=== PATIENT | male | born 1965 | race Caucasian/White ===

== ENCOUNTER 2016-05-05 16:53 | Emergency (ER) | payer OTHER ==
[2016-05-05 18:27] VITALS: BP 142/96
--- NOTE | 2016-05-05 19:29 | UC ---
Skin Complaint HPI - HPI Summary HPI Summary: 51 male presents complaining of a lesion on his abdomen that began 2 weeks ago and has not improved. He states it is a small circular lesion that is only on his abdomen and recently noticed a similar area on his right foot. He describes the rash to be burning. Denies itchiness, edema, discharge and spreading. Admits to erythema. States his has a similar one on her face and she thinks it may be a spider bite. He has been applying hydrocortisone on the area without much improvement. He states he was searching shingles and discussing with co-workers about it and wanted to make sure it wasn't it. Admits he is a "germaphobe" and has OCD and wanted to make sure it was nothing serious. Denies new use of lotion, soap, cologne, detergent or clothes. States his clothes rubbing on it and shower water makes it burn more. Denies sensitive skin however admits to showering often. 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 - Allergy/Home Medications Allergies/Adverse Reactions: Allergies Allergy/AdvReac Type Severity Reaction Status Date / Time Celecoxib [From Celebrex] Allergy Unknown Verified 05/05/16 18:27 Reaction Details [place] Allergy See Comment Verified 05/05/16 18:27 Codeine Allergy Nausea And Verified 05/05/16 18:27 Vomiting Rofecoxib [From Vioxx] Allergy Nausea And Verified 05/05/16 18:27 Vomiting Shellfish Allergy Allergy Vomiting Verified 05/05/16 18:27 Review of Systems Constitutional: Negative Skin: Rash Eyes: Negative ENT: Negative Respiratory: Negative Cardiovascular: Negative Gastrointestinal: Negative Genitourinary: Negative Motor: Negative Neurovascular: Negative Musculoskeletal: Negative Neurological: Negative Psychological: Negative All Other Systems Reviewed And Are Negative: Yes PMH/Surg Hx/FS Hx/Imm Hx Endocrine History Of: Denies: Diabetes, Thyroid Disease Cardiovascular History Of: Reports: Hypertension Denies: Cardiac Disorders, Pacemaker/ICD Respiratory History Of: Reports: Bronchitis Denies: COPD, Asthma GI/ History Of: Denies: Ulcer, Renal Disease Neurological History Of: Reports: Migraine - OCCASSIONAL Psychological History Of: Reports: Anxiety - OCD - Surgical History Surgical History: Yes Surgery Procedure, Year, and Place: cyst removal from right pectoral muscle - Family History Known Family History: Positive: Diabetes, Other - BREAST CANCER - MOM - Social History Alcohol Use: Occasionally Substance Use Type: None Smoking Status (MU): Never Smoked Tobacco Physical Exam Triage Information Reviewed: Yes Appearance: Well-Appearing, No Pain Distress, Well-Nourished Vital Signs: Initial Vital Signs Temp 97.5 F 05/05/16 18:23 Pulse 70 05/05/16 18:23 Resp 12 05/05/16 18:23 BP 142/96 05/05/16 18:23 Pulse Ox 100 05/05/16 18:23 Vital Signs Reviewed: Yes Eyes: Positive: Conjunctiva Clear ENT: Positive: Normal ENT inspection, Hearing grossly normal, Pharynx normal, TMs normal Dental Exam: Normal Dental: Negative: Cervical Lymphadenopathy Neck: Positive: Supple, Nontender, No Lymphadenopathy Respiratory: Positive: Chest non-tender, Lungs clear, Normal breath sounds, No respiratory distress Cardiovascular: Positive: RRR, No Murmur, Pulses Normal, Brisk Capillary Refill Abdomen Description: Positive: Nontender, No Organomegaly, Soft Bowel Sounds: Positive: Present Musculoskeletal Exam: Normal Neurological Exam: Normal Psychological Exam: Normal Skin: Positive: significant lesion(s) - circular erythematous non-raised 1cm area on abdomen, similar lesion on right lateral foot. appears dry. no weeping or discharge, no excoriations. no sign of rash or lesion on back, rest of abdomen, web spaces or anywhere else on body. Appears to possibly be a spider bite or area of eczema. no annular ring and no crusting. does not appear to be fungal. Course/Dx - Course Course Of Treatment: patient was instructed to stop use of hydrocortisone cream as it has not helped him or made a difference. it could be causing more of an irritation. encouraged to use eucerin and to try neosporin to see if it helps. did not appear fungal. told to follow-up with PCP or return if it does not go away in the next couple of weeks to be further evaluated. educated on shingles and common presentations of shingles. encouraged to get shingles vaccination. - Differential Diagnoses - Skin Complaint Differential Diagnoses: Allergic Reaction, Cellulitis, Contact Dermatitis, Eczema, Varicella Zoster, Viral Exanthem, Other - Diagnoses Provider Diagnoses: skin irritation, possible spider bite, eczema Discharge - Discharge Plan Condition: Stable Disposition: HOME Patient Education Materials: Insect Bite or Sting (ED), Eczema (ED) Referrals: Dylan Renteria MD [Primary Care Provider] - Additional Instructions: Try using Eucerin and Neosporin alternatively over the counter for the next few days on area of irritation. Stop using hydrocortisone since you have not had any improvement and could possibly be causing more irritation. Please follow-up with primary care doctor to be further evaluated if symptoms do not improve or worsen. You may need to make an appointment with dermatology if no improvement. If you develop symptoms of worsening redness, spreading, fever, chills increase pain please seek medical attention promptly.
== END 2016-05-05 19:36 | disposition home or self-care (01) ==
LOC: UCEAST 16:53
DX: R21 Rash and other nonspecific skin eruption (principal); Z88.5 Allergy status to narcotic agent
CPT/HCPCS: 99211; G0463

== ENCOUNTER 2017-01-17 16:47 | Emergency (ER) | payer OTHER ==
[2017-01-17 16:54] VITALS: BP 132/69
--- NOTE | 2017-01-17 17:15 | UC ---
Back Pain HPI - HPI Summary HPI Summary: Patient presents with three day onset non-traumatic flank pain. He states the pain is worse when he lays down and improves when he is up and walking around. He denies fever, chills, dysuria, or hematuria, testicular pain, or penile discharge. - History of Current Complaint Chief Complaint: UCBackPain Stated Complaint: BACK PAIN Time Seen by Provider: 01/17/17 16:59 Hx Obtained From: Patient Onset/Duration: Sudden Onset, Lasting Days Timing: Lasting Days Severity Initially: Moderate Severity Currently: Moderate Back Pain: Is Discrete @ Character: Sharp Aggravating Factor(s): Other - laying down Alleviating Factor(s): Rest Associated Signs And Symptoms: Positive: Flank Pain - Risk Factors AAA Risk Factors: Negative TAD Risk Factors: Negative Cauda Equina Risk Factors: Negative Epidural Abscess Risk Factors: Negative - Allergies/Home Medications Allergies/Adverse Reactions: Allergies Allergy/AdvReac Type Severity Reaction Status Date / Time Celecoxib [From Celebrex] Allergy Unknown Verified 01/17/17 16:54 Reaction Details [place] Allergy See Comment Verified 01/17/17 16:54 Codeine Allergy Nausea And Verified 01/17/17 16:54 Vomiting Rofecoxib [From Vioxx] Allergy Nausea And Verified 01/17/17 16:54 Vomiting Shellfish Allergy Allergy Vomiting Verified 01/17/17 16:54 Home Medications: Home Medications Losartan Potassium 1 tab PO DAILY 01/17/17 [History Confirmed 01/17/17] PMH/Surg Hx/FS Hx/Imm Hx Previously Healthy: Yes - Surgical History Surgical History: Yes Surgery Procedure, Year, and Place: cyst removal from right pectoral muscle - Family History Known Family History: Positive: Diabetes, Other - BREAST CANCER - MOM - Social History Occupation: Employed Part-time Lives: Alone Alcohol Use: Occasionally Substance Use Type: None Smoking Status (MU): Never Smoked Tobacco Review of Systems Constitutional: Negative Skin: Negative Eyes: Negative ENT: Negative Respiratory: Negative Cardiovascular: Negative Gastrointestinal: Negative Genitourinary: Negative Motor: Negative Neurovascular: Negative Musculoskeletal: Negative, Other: - right flank pain Neurological: Negative Psychological: Negative All Other Systems Reviewed And Are Negative: Yes Physical Exam Triage Information Reviewed: Yes Appearance: Well-Appearing Vital Signs: Initial Vital Signs Temp 96.7 F 01/17/17 16:51 Pulse 66 01/17/17 16:51 Resp 18 01/17/17 16:51 BP 132/69 01/17/17 16:51 Pulse Ox 100 01/17/17 16:51 Vital Signs Reviewed: Yes Eye Exam: Normal ENT Exam: Normal Neck exam: Normal Neck: Positive: 1 Respiratory Exam: Normal Cardiovascular Exam: Normal Abdominal Exam: Normal, Other - right CVAT on palpation Musculoskeletal Exam: Normal Neurological Exam: Normal Psychological Exam: Normal Skin Exam: Normal Back Pain Course/Dx - Course Course Of Treatment: Patient presents with right sided flank pain, no CT, or stat labs available so the patient was referred to the ER where he could be evaluated. He declined ambuance transfer, and went in private vehicle. Stable at discharge. - Differential Dx/Diagnosis Differential Diagnosis/HQI/PQRI: Other - flank pain Provider Diagnoses: flank pain Discharge - Discharge Plan Condition: Stable Disposition: OTHER Discharge Disposition Comment: ER Patient Education Materials: Flank Pain (ED) Referrals: Dylan Renteria MD [Primary Care Provider] - Additional Instructions: Patient sent to ER for evaluation of right flank pain, he declined ambulance transfer to ER. Recommend he go directly to er.
== END 2017-01-17 17:31 ==
LOC: UCEAST 16:47
DX: M54.9 Dorsalgia, unspecified (principal); Z88.5 Allergy status to narcotic agent; Z88.8 Allergy status to other drugs, medicaments and biological substances
CPT/HCPCS: 99212; G0463

== ENCOUNTER 2017-01-17 17:53 | Emergency (ER) | payer OTHER ==
[2017-01-17 18:05] VITALS: BP 138/80
== END 2017-01-17 21:02 | disposition left against medical advice (07) ==
LOC: ED 17:53
DX: M54.5 Low back pain (principal); Z53.21 Procedure and treatment not carried out due to patient leaving prior to being seen by health care provider
CPT/HCPCS: 99282

== ENCOUNTER 2017-11-15 16:43 | Emergency (ER) | payer OTHER ==
[2017-11-15 17:02] VITALS: BP 118/76
--- NOTE | 2017-11-15 17:04 | UC ---
Ear Complaint HPI - HPI Summary HPI Summary: 52 yo male presents with left ear pain for the last 4 days getting increasingly worse. He has not been taking anything OTC. Denies fever, chills, sinus symptoms , or cough. - History of Current Complaint Chief Complaint: UCEar Stated Complaint: EAR ACHE Time Seen by Provider: 11/15/17 17:04 Hx Obtained From: Patient Onset/Duration: Gradual Onset Severity Initially: Mild Severity Currently: Mild Pain Intensity: 3 Pain Scale Used: 0-10 Numeric - Allergies/Home Medications Allergies/Adverse Reactions: Allergies Allergy/AdvReac Type Severity Reaction Status Date / Time celecoxib [From Celebrex] Allergy Unknown Verified 11/15/17 17:04 Reaction Details [place] And Derivatives Allergy See Comment Verified 11/15/17 17:04 codeine Allergy Nausea And Verified 11/15/17 17:04 Vomiting rofecoxib [From Vioxx] Allergy Nausea And Verified 11/15/17 17:04 Vomiting shellfish derived Allergy Nausea And Verified 11/15/17 17:04 Vomiting PMH/Surg Hx/FS Hx/Imm Hx Cardiovascular History: Hypertension GI/ History: Gastroesophageal Reflux - Surgical History Surgical History: Yes Surgery Procedure, Year, and Place: cyst removal from right pectoral muscle - Family History Known Family History: Positive: Diabetes, Other - BREAST CANCER - MOM - Social History Occupation: Employed Full-time Lives: With Family Alcohol Use: Occasionally Substance Use Type: None Smoking Status (MU): Never Smoked Tobacco Review of Systems Constitutional: Negative Skin: Negative Eyes: Negative ENT: Ear Ache Respiratory: Negative Cardiovascular: Negative Gastrointestinal: Negative Neurovascular: Negative Neurological: Negative Psychological: Negative All Other Systems Reviewed And Are Negative: Yes Physical Exam - Summary Physical Exam Summary: GENERAL: NAD. WDWN. No pain distress. SKIN: No rashes, sores, lesions, or open wounds. HEENT: Head: AT/NC Eyes: EOM intact. Conjunctiva clear without inflammation or discharge. Ears: Hearing grossly normal. LEFT EAR: TM with mild erythema and bulging. No canal edema or drainage. Nose: Nasal mucosa pink and moist. NTTP maxillary and frontal sinus. Throat: Posterior oropharynx without exudates, erythema, or tonsillar enlargement. Uvula midline. NECK: Supple. Nontender. No lymphadenopathy. CHEST: CTAB. No r/r/w. No accessory muscle use. Breathing comfortably and in no distress. CV: RRR. Without m/r/g. Pulses intact. NEURO: Alert. CN II-XII grossly intact. PSYCH: Age appropriate behavior. Triage Information Reviewed: Yes Vital Signs: Initial Vital Signs Temp 97.5 F 11/15/17 17:00 Pulse 72 11/15/17 17:00 Resp 18 11/15/17 17:00 BP 118/76 11/15/17 17:00 Pulse Ox 100 11/15/17 17:00 Vital Signs Reviewed: Yes Ear Complaint Course/Dx - Course Course Of Treatment: Left otitis media - Differential Dx/Diagnosis Provider Diagnoses: Left otitis media Discharge - Sign-Out/Discharge Documenting (check all that apply): Patient Departure All imaging exams completed and their final reports reviewed: No Studies - Discharge Plan Condition: Stable Disposition: HOME Prescriptions: Amoxicillin PO (*) [Amoxicillin 875 MG (*)] 875 mg PO BID #20 tab Patient Education Materials: Ear Infection (ED) Referrals: Dylan Renteria MD [Primary Care Provider] - Additional Instructions: If you develop a fever, shortness of breath, chest pain, new or worsening symptoms - please call your PCP or go to the ED. - Billing Disposition and Condition Condition: STABLE Disposition: Home
== END 2017-11-15 17:15 | disposition home or self-care (01) ==
LOC: UCEAST 16:43
DX: H66.92 Otitis media, unspecified, left ear (principal); Z88.8 Allergy status to other drugs, medicaments and biological substances
CPT/HCPCS: 99212; G0463